=== PATIENT | female | born 1970 | race Caucasian/White ===

== ENCOUNTER 2024-11-29 06:30 | Emergency (ER) | payer OTHER ==
[2024-11-29 06:39] VITALS: RESP 18; TEMP 98.4
[2024-11-29] MEDS ORDERED: Zofran 4 MG/2 ML VIAL ONE (07:40)
[2024-11-29] MEDS ORDERED: PROTONIX 40 MG IV IV ONE (07:40)
[2024-11-29] MEDS: PROTONIX 40 MG IV IV ONE (07:43)
[2024-11-29] MEDS: Zofran 4 MG/2 ML VIAL IV ONE (07:43)
--- NOTE | 2024-11-29 07:54 | ERPHSYRPT ---
- History of Present Illness Time Seen by Provider: 11/29/24 07:15 Historian: patient Exam Limitations: no limitations Patient Subjective Stated Complaint: "I've been camping at [facility] and around 3am, I woke up with this horrible pain in my abdomen and it's going around to my back. I feel like I'm really full and I'm prone to UTIs." Triage Nursing Assessment: Pt presents to ER with complaints of abdominal pain that woke her from her sleep around 0300. States pain is in mid to lower abdomen, that radiates to lower back. Pt descibes the pain as intermittent, sharp and stabbing in nature. Rates pain 8/10 scale. Pt is alert and oriented x 3. Skin is pink, warm, and dry. Respirations are easy. Abdomen is tender upon exam. Complains of nausea. Last oral intake was a campfire hotdog last night. Denies vomiting or diarrhea. Abdomen appears slightly distended. Pt is ambulatory and drove self to the ER today. Physician History: This is a 54-year-old white female patient who has a history of hypothyroidism and has had a cholecystectomy in the past but no other abdominal surgeries presenting to the emergency department by private vehicle with a complaint of bilateral lower quadrant abdominal cramping with bilateral flank pain. She has been nauseated but not vomiting. She has been having the symptoms intermittently for several weeks. However at approxi-3 AM this morning the cramping became so severe that she brought herself to the emergency department. Patient lives in [facility] was camping at [facility]. Patient has had nausea but no vomiting. She has not had diarrhea. In fact she states she has had more constipation. Patient underwent a colonoscopy 2 years ago and there was a few polyps that were removed. Patient has had a history of ureteral calculi in the past. It somewhat feels like this. Patient states that she would like something for nausea. She is uncertain whether or not she can get a ride and we will hold any narcotic or sedating medication at this time. Patient denies chest pain. Patient denies cough. Patient denies shortness of breath Quality: cramping Abdominal Pain Onset Location: RLQ, LLQ, flank (Bilateral) Severity of Pain-Max: moderate Severity of Pain-Current: mild (To moderate) Modifying Factors: Improves With: nothing Associated Symptoms: loss of appetite, nausea, No chest pain, No fever/chills, No shortness of breath, No vomiting Previous symptoms: same symptoms as today, no recent treatment Allergies/Adverse Reactions: azithromycin [From Zithromax] Allergy (Intermediate, Verified 11/29/24 06:34) Rash Home Medications: Levothyroxine Sodium 50 Mcg [Synthroid 50 Mcg] 50 mcg PO DAILY 11/29/24 [History] Valacyclovir HCl [Valacyclovir] 500 mg PO DAILY 11/29/24 [History] Hx Tetanus, Diphtheria Vaccination/Date Given: Yes Hx Influenza Vaccination/Date Given: No Hx Pneumococcal Vaccination/Date Given: No Immunizations Up to Date: No Travel Risk - International Travel Have you traveled outside of the country in past 3 weeks: No - Emerging Infectious Disease Are you exhibiting symptoms associated with any current EIDs: No - Review of Systems Constitutional: No Symptoms Eyes: No Symptoms Ears, Nose, & Throat: No Symptoms Respiratory: No Symptoms Cardiac: No Symptoms Abdominal/Gastrointestinal: Abdominal Pain (Bilateral lower quadrant), Nausea, Constipation, Appetite Changes, No Vomiting, No Diarrhea Genitourinary Symptoms: No Symptoms Musculoskeletal: No Symptoms Skin: No Symptoms Neurological: No Symptoms Psychological: No Symptoms Endocrine: No Symptoms Hematologic/Lymphatic: No Symptoms Immunological/Allergic: No Symptoms All Other Systems: Reviewed and Negative - Past Medical History Pertinent Past Medical History: Yes Neurological History: No Pertinent History ENT History: No Pertinent History Cardiac History: No Pertinent History Respiratory History: No Pertinent History Endocrine Medical History: Hypothyroidism Musculoskeletal History: No Pertinent History GI Medical History: No Pertinent History History: No Pertinent History Psycho-Social History: No Pertinent History Female Reproductive Disorders: No Pertinent History - Past Surgical History Past Surgical History: Yes Neuro Surgical History: No Pertinent History Cardiac: No Pertinent History Respiratory: No Pertinent History Gastrointestinal: Cholecystectomy Genitourinary: No Pertinent History Musculoskeletal: Orthopedic Surgery Female Surgical History: Hysterectomy Other Surgical History: ULNAR NERVE REPAIR - Female History Hx Last Menstrual Period: N/A Hx Now: No - Social History Smoking Status: Never smoker Exposure to second hand smoke: No Drug Use: none - Social Determinants of Health Will the patient participate in the screening: Yes Do you worry about a steady place to live?: No Do you have any problems with any of the following?: No known problems In the past 12 months,have you had to go without utilities?: No Transportation Issues: No Has anyone in your support network made you feel unsafe?: No Have you or anyone in your house had to go w/o enough food: No - Nursing Vital Signs Nursing Vital Signs: Initial Vital Signs Temperature 98.4 F 11/29/24 06:35 Pulse Rate 74 11/29/24 06:35 Respiratory Rate 18 11/29/24 06:35 Blood Pressure 146/92 11/29/24 06:35 O2 Sat by Pulse Oximetry 97 11/29/24 06:35 Pain Scale Pain Intensity 4 - Physical Exam General Appearance: no apparent distress, alert, anxiety Eye Exam: PERRL/EOMI, eyes nml inspection Ears, Nose, Throat Exam: normal ENT inspection, moist mucous membranes Neck Exam: normal inspection, non-tender, supple, full range of motion Respiratory Exam: normal breath sounds, airway intact, No chest tenderness, No respiratory distress Cardiovascular Exam: regular rate/rhythm, normal heart sounds, normal peripheral pulses Gastrointestinal/Abdomen Exam: soft, normal bowel sounds, tenderness (Mild bilateral lower quadrant tenderness to palpation), guarding (Mild bilateral lower quadrant to palpation), No rebound Pelvic Exam: not done Rectal Exam: not done Back Exam: normal inspection, normal range of motion, No CVA tenderness, No vertebral tenderness Extremity Exam: normal inspection, normal range of motion, pelvis stable Neurologic Exam: alert, oriented x 3, cooperative, traffic coordinator II-XII nml as tested, nml cerebellar function, nml station & gait, sensation nml Skin Exam: normal color, warm, dry Lymphatic Exam: No adenopathy SpO2 Interpretation: normal SpO2: 96 O2 Delivery: Room Air - Course Nursing assessment & vital signs reviewed: Yes Ordered Tests: Active Orders 24 hr Category Date Time Status IV Insertion STAT Care 11/29/24 07:27 Active ABDOMEN AND PELVIS W/0 CONTRAS [CT] Stat Exams 11/29/24 07:27 Completed AMYLASE Stat Lab 11/29/24 08:00 Completed CBC W DIFF Stat Lab 11/29/24 08:00 Completed CMP Stat Lab 11/29/24 08:00 Completed LIPASE Stat Lab 11/29/24 08:00 Completed UA W/RFX UR CULTURE Stat Lab 11/29/24 08:41 Completed Medication Summary Discontinued Medications Generic Name Dose Route Start Last Admin Trade Name Freq PRN Reason Stop Dose Admin Sodium Chloride 1,000 mls @ 999 mls/hr 11/29/24 07:27 11/29/24 07:43 Sodium Chloride 0.9% 1000 Ml IV 11/29/24 08:27 999 mls/hr .Q1H1M STA Administration Sodium Chloride Confirm 11/29/24 07:40 Sodium Chloride 0.9% 1000 Ml Administered 11/29/24 07:41 Dose 1,000 mls @ ud .ROUTE .STK-MED ONE Ondansetron HCl 4 mg 11/29/24 07:27 11/29/24 07:43 Ondansetron Hcl 4 Mg/2 Ml Vial IV 11/29/24 07:28 4 mg STAT ONE Administration Ondansetron HCl Confirm 11/29/24 07:40 Ondansetron Hcl 4 Mg/2 Ml Vial Administered 11/29/24 07:41 Dose 4 mg .ROUTE .STK-MED ONE Pantoprazole Sodium 40 mg 11/29/24 07:27 11/29/24 07:43 Pantoprazole 40 Mg Vial IV 11/29/24 07:28 40 mg STAT ONE Administration Pantoprazole Sodium Confirm 11/29/24 07:40 Pantoprazole 40 Mg Vial Administered 11/29/24 07:41 Dose 40 mg IV .STK-MED ONE Lab/Rad Data: Laboratory Result Diagrams 11/29/24 08:00 11/29/24 08:00 Laboratory Results 11/29/24 11/29/24 11/29/24 Range/Units 08:41 08:00 08:00 WBC 7.6 (3.98-10.04) x10^3/uL RBC 3.99 (3.93-5.22) x10^6/uL Hgb 13.2 (11.2-15.7) g/dL Hct 38.9 (34.1-44.9) % MCV 97.5 H (79.4-94.8) fL MCH 33.1 H (25.6-32.2) pg MCHC 33.9 (32.2-35.5) g/dL RDW 12.2 (11.7-14.4) % Plt Count 240 (182-369) x10^3/uL MPV 9.7 (9.4-12.3) fL Gran % 71.8 H (34.0-71.1) % Immature Gran % (Auto) 0.3 (0.001-0.429) % Nucleat RBC Rel Count 0.0 (0.00-0.2) % Eos # (Auto) 0.04 (0.04-0.36) x10^3/uL Immature Gran # (Auto) 0.02 (0.001-0.031) x10^3u/L Absolute Lymphs (auto) 1.36 (1.18-3.74) x10^3/uL Absolute Monos (auto) 0.67 (0.24-0.86) x10^3/uL Absolute Nucleated RBC 0.00 (0.00-0.012) x10^3u/L Lymphocytes % 17.9 L (19.3-51.7) % Monocytes % 8.8 (4.7-12.5) % Eosinophils % 0.5 L (0.7-5.8) % Basophils % 0.7 (0.1-1.2) % Absolute Granulocytes 5.44 (1.56-6.13) x10^3/uL Basophils # 0.05 (0.01-0.08) x10^3/uL Sodium 141 (135-145) mmol/L Potassium 3.8 (3.5-5.1) mmol/L Chloride 108 H (98-107) mmol/L Carbon Dioxide 26 (22-30) mmol/L Anion Gap 10.4 (5-15) MEQ/L BUN 17 (7-17) mg/dL Creatinine 0.60 (0.52-1.04) mg/dL Estimated GFR 107.3 ML/MIN Glucose 105 (74-106) mg/dL Calcium 9.3 (8.4-10.2) mg/dL Total Bilirubin 0.70 (0.2-1.3) mg/dL AST 43 H (14-36) U/L ALT 32 (0-35) U/L Alkaline Phosphatase 79 (38-126) U/L Serum Total Protein 7.1 (6.3-8.2) g/dL Albumin 4.3 (3.5-5.0) g/dL Amylase 67 (30-110) U/L Lipase 149 (23-300) U/L Urine Color Yellow (Yellow) Urine Appearance Clear (Clear) Urine pH 6.5 (4.6-8.0) Ur Specific [place] 1.015 (1.005-1.030) Urine Protein Negative (Negative) Urine Glucose (UA) Negative (Negative) mg/dL Urine Ketones Negative (Negative) Urine Blood Negative (Negative) Urine Nitrite Negative (Negative) Urine Bilirubin Negative (Negative) Urine Urobilinogen 0.2 (0.2) mg/dL Ur Leukocyte Esterase Small A (Negative) U Hyaline Cast (Auto) NONE SEEN (0-2) /LPF Urine Microscopic RBC 0-2 (0-5) /HPF Urine Microscopic WBC 0-2 (0-5) /HPF Ur Epithelial Cells None Seen (None Seen) /HPF Urine Bacteria None Seen (None Seen) /HPF Urine Culture Reflexed NO (NO) - Progress Progress: improved, pain not gone completely, re-examined Progress Note: 11/29/24 07:53 My medical decision making and the assignment of moderate complexity of this patient's medical issue today is based on review of the patient's past medical history, reviewed patient's medication list, reviewed patient drug allergy list, history present illness and physical findings on examination. The workup in this patient includes placement of intravenous line, infusion of normal saline solution, infusion of Zofran, infusion of Protonix, CBC, CMP, amylase, lipase, urinalysis, CT scan of the abdomen pelvis without contrast. Differential diagnosis includes but is not limited to constipation, bowel obstruction, pancreatitis, acute appendicitis, diverticulitis, colitis 11/29/24 09:20 I interpreted the patient's laboratory data results. Based on the laboratory data results, there are no acute, emergent medical issues The CT scan of the abdomen pelvis without contrast was interpreted by the radiologist and I reviewed the impression. The impression states fatty hepatomegaly, left renal nonobstructing calculus, uncomplicated colonic diverticulosis Counseled pt/family regarding: lab results, diagnosis, need for follow-up, rad results Medical Desision Making - Diagnostic Testing Diagnostic test were ordered, analyzed, and reviewed by me: Yes Radiological Interpretation: Reviewed by me, Teleradiologist Report - Risk of complications Low Risk: Low risk of morbidity from additional dx testing or treatment - Departure Departure Disposition: Home Clinical Impression: Kidney stone on left side, Colon, diverticulosis, Abdominal pain Condition: Stable Critical Care Time: No Referrals: KELLY GILLIS NP [Primary Care Provider, [facility]] - Follow up/PCP as directed Additional Instructions: Drink plenty of fluids. Take all your medications as prescribed. Call your primary care provider on 12/01/2024, to make arrangements for follow-up appointment for further evaluation and management.
[2024-11-29 08:08] VITALS: PULSE 72
[2024-11-29 08:12] LABS: BASOPHIL % 0.7 % (0.1-1.2); Basophil (Absolute #) 0.05 x10^3/uL (0.01-0.08); Eosinophil (Absolute #) 0.04 x10^3/uL (0.04-0.36); Hematocrit 38.9 % (34.1-44.9); Hemoglobin 13.2 g/dL (11.2-15.7); IMMATURE GRAN # 0.02 x10^3u/L (0.001-0.031); IMMATURE GRAN % 0.3 % (0.001-0.429); Lymphocyte (Absolute #) 1.36 x10^3/uL (1.18-3.74); Mean Corpuscular Hemoglobin 33.1 pg (25.6-32.2); Mean Corpuscular Hgb Concent. 33.9 g/dL (32.2-35.5); Monocyte (Absolute #) 0.67 x10^3/uL (0.24-0.86); NUCLEATED RBC # 0.00 x10^3u/L (0.00-0.012); NUCLEATED RBC % 0.0 % (0.00-0.2); Platelet Count 240 x10^3/uL (182-369); Red Blood Count 3.99 x10^6/uL (3.93-5.22); White Blood Count 7.6 x10^3/uL (3.98-10.04)
[2024-11-29 08:25] LABS: Calcium 9.3 mg/dL (8.4-10.2); Carbon Dioxide 26.0 mmol/L (22-30); Creatinine 1 0.6 mg/dL (0.52-1.04); EST GLOMERULAR FILTRATION RATE 107.3 ML/MIN; Glucose 105.0 mg/dL (74-106); Potassium 3.8 mmol/L (3.5-5.1); SGOT/AST 43.0 U/L (14-36); SGPT/ALT 32.0 U/L (0-35); Total Protein 7.1 g/dL (6.3-8.2)
--- NOTE | 2024-11-29 08:31 | XRAY ---
CLINICAL HISTORY: Flank and B LQ ABD pain COMPARISON: No prior studies are available for comparison. TECHNIQUE: Non-contrast CT of the abdomen and pelvis was performed using the following protocol: axial images, with reconstructed coronal and sagittal images. No intravenous contrast was administered. One of the following dose reduction techniques was utilized for this exam: automated exposure control, adjustment of the mA and/or kV according to patient size, and use of iterative reconstruction. FINDINGS: Abdomen: Liver: The liver is enlarged, measuring 19 cm in the craniocaudal axis, with fatty density. No focal lesions, cysts, or masses are identified. Gallbladder and Biliary System: The gallbladder is surgically absent, with cholecystectomy clips seen. The CBD is ectatic, measuring 10 mm, consistent with post-cholecystectomy status. Pancreas: The pancreatic head, body, and tail are visualized and appear normal in size and density. No pancreatic masses or calcifications are noted. Spleen: The spleen is normal in size, shape, and density. No splenic lesions or masses are identified. Kidneys and Adrenal Glands: Both kidneys are normal in size, shape, and position. Cortical thickness is within normal limits. No renal calculi are seen on the right side. A 4.7 mm calculus with a CT density of 576 HU is seen at the lower pole of the left kidney; however, there is no hydronephrosis. Bilateral mild pelvicalyceal fullness is seen. The adrenal glands are unremarkable. Pelvis: Urinary Bladder: Normal in contour and wall thickness. No intraluminal lesions are identified. Uterus: Surgically absent. Multiple pelvic phleboliths are seen. Peritoneal and Retroperitoneal Structures: No free fluid or abnormal fluid collections are identified within the abdomen or pelvis. A left para-aortic lymph node with a short axis of 8 mm is seen. Bowel: A few uncomplicated colonic diverticula are seen. Colonic fecal loading is noted. A small hiatal hernia is noted. Some oral contrast is seen in collapsed small bowel loops?correlate with history. No evidence of bowel obstruction or wall thickening. Bones and Soft Tissues: The pelvic bones and soft tissues are unremarkable. No fractures or abnormal masses are identified. Slices through the lung bases show ground-glass opacities with reticulations, which can be due to an infective process or orthostatic effect. Two solid pulmonary nodules are seen in the right lung base, the larger measuring 9 mm. IMPRESSION: 1. Fatty hepatomegaly. 2. Left renal non-obstructive calculus. 3. Uncomplicated colonic diverticulosis. Electronically Signed by: Dustin Hernandez MD. (11/29/2024 08:31:32 EDT)
[2024-11-29 09:16] LABS: Glucose, Urine Negative (Negative); Protein,Urine Dip Negative (Negative); RBC 0-2 /HPF (0-5); WBC 0-2 /HPF (0-5)
[2024-11-29 09:22] VITALS: O2SAT 96
[2024-11-29 09:50] VITALS: BP 126/64
== END 2024-11-29 09:49 | disposition home or self-care (01) ==
LOC: ED 06:30
DX: N20.0 Calculus of kidney (principal); K57.30 Diverticulosis of large intestine without perforation or abscess without bleeding; R10.31 Right lower quadrant pain; R10.32 Left lower quadrant pain; R11.0 Nausea; Z79.899 Other long term (current) drug therapy